=== PATIENT | female | born 1955 | race Caucasian/White ===

== ENCOUNTER → 2017-07-26 | Outpatient (CLI) | payer OTHER | LOC: FIMAGING 09:01 | PROVIDERS: ATTEND Physician Assistant Medical | DX: Z12.31 Encounter for screening mammogram for malignant neoplasm of breast (principal) | CPT/HCPCS: G0202 ==

== ENCOUNTER → 2018-08-30 | Outpatient (CLI) | payer OTHER | LOC: FIMAGING 10:42 | PROVIDERS: ATTEND Physician Assistant Medical | DX: Z12.31 Encounter for screening mammogram for malignant neoplasm of breast (principal) ==

== ENCOUNTER 2019-04-18 08:13 | Day surgery (SDC) | payer OTHER ==
[2019-04-18] MEDS ORDERED: NS 1,000 ML IV ONE (08:17)
[2019-04-18] MEDS ORDERED: FAMOTIDINE 20 MG TAB PO ONE (08:17)
[2019-04-18] MEDS ORDERED: DIAZEPAM 5 MG TAB PO ONE (08:17)
[2019-04-18] MEDS ORDERED: ASPIRIN EC 325 MG TAB PO ONE (08:17)
[2019-04-18] MEDS ORDERED: diphenhydrAMINE 25 MG CAP PO ONE (08:17)
[2019-04-18] MEDS ORDERED: LIDOCAINE 1% 300 MG/30 ML SDV ONE (08:27)
[2019-04-18] MEDS ORDERED: fentaNYL 100 MCG/2 ML INJ ONE (08:27)
[2019-04-18] MEDS ORDERED: MIDAZOLAM 2 MG/2 ML VIAL ONE (08:27)
[2019-04-18] MEDS ORDERED: VERAPAMIL 5 MG/2 ML VIAL ONE (08:28)
[2019-04-18] MEDS ORDERED: IOPAMIDOL (ISOVUE 370) 100 ML BTL IV ONE (08:28)
[2019-04-18] MEDS ORDERED: HEPARIN 10,000 UNIT/10 ML MDV (1,000 UNIT/ML) ONE (08:28)
[2019-04-18 09:05] LABS: PLATELET COUNT 286 10^3/uL (150-400)
--- NOTE | 2019-04-18 09:12 | PDHPUP ---
History & Physical Update H&P update statement: This history and physical update is based on an assessment of the patient which was completed after admission or registration (within 24 hours), but prior to the surgery/procedure. H&P update: H&P reviewed & patient examined, no change in patient's condition since H&P completed
--- NOTE | 2019-04-18 09:12 | PDPROPOC ---
Sedation Plan of Care Sedation Plan of Care: vital signs stable, mental status noted, patient educated of risks, benefits, alternatives, patient can tolerate sedation ASA Classification: ASA 2 Planned drugs: fentanyl, midazolam Mallampati Score: Class 1 Mallampati Reference Image: Patient passed 3-3-2 rule?: Yes
[2019-04-18 09:20] LABS: INR 0.98 (0.83-1.16); PROTIME(PATIENT) 12.6 SEC (12.0-15.0)
--- NOTE | 2019-04-18 10:03 | PDDXCAT ---
Diagnostic Cath Note - . Date: 04/18/19 Mail Handler: Pepe Indication: CCC Class III and IV angina on medical treatment - Procedure Access: right wrist Procedure: left heart catheterization, coronary angiography, left ventriculogram - Materials Left Heart Cath size: 4F Left Heart Cath materials: standard multipack (JL4, JR4, pigtail) - Findings-Left Heart Catheterization LM: Long unobstructed LAD: Unobstructed LCX: Unobstructed RCA: Dominant: Unobstructed EDP: 12 mm of mercury LVEF: 65 Wall motion: No regional wall motion abnormalities. Aorta within field of view within normal limits. Complications: None Estimated blood loss: <50ml Closure method: TR Band Assessment: Angiographically normal coronary arteries. Normal LV systolic function Plan: Aggressive secondary prevention for CAD by imaging
[2019-04-18] MEDS ORDERED: ONDANSETRON 4 MG/2 ML VIAL ONE (13:46)
== END 2019-04-18 14:40 | disposition home or self-care (01) ==
LOC: FCATH 08:13
PROVIDERS: ATTEND Internal Medicine Interventional Cardiology
DX: I25.119 Atherosclerotic heart disease of native coronary artery with unspecified angina pectoris (principal); E78.5 Hyperlipidemia, unspecified
CPT/HCPCS: 93458; C1769; J1644; J2250; J2405; J3010; Q9967